=== PATIENT | male | born 1995 | race American Indian/Alaskan Native ===

== ENCOUNTER 2022-02-17 05:18 | Emergency (ER) | payer SELFPAY ==
[2022-02-17 06:26] VITALS: BP 119/53
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
== END 2022-02-17 17:55 | disposition left against medical advice (07) ==
LOC: ED 05:18
DX: M25.562 Pain in left knee (principal); Z53.21 Procedure and treatment not carried out due to patient leaving prior to being seen by health care provider